=== PATIENT | male | born 1965 | race Caucasian/White ===

== ENCOUNTER 2024-06-12 09:43 | Outpatient (CLI) | payer OTHER ==
[2024-06-12 10:37] LABS: #Basophils 0.06 10x3/uL (0.0-0.2); %Basophils 0.8 % (0.0-1.0); %Lymphocytes 28.9 % (21.0-51.0); %Monocytes 12.9 % (0.0-10.0); %Neutrophils 53.6 % (42.0-75.0); Hematocrit 47.9 % (42.0-52.0); Hemoglobin 16.2 g/dL (14.0-18.0); Mean Corpuscular HGB CONC 33.8 g/dL (32.0-36.0); Mean Corpuscular Hemoglobin 30.3 pg (27.0-31.0); Mean Corpuscular Volume 89.7 fL (78.0-98.0); Mean Platelet Volume 9.8 fL (7.4-10.4); Platelet Count 207 10x3/uL (130-400); RBC Distribution Width 13.4 % (11.5-14.5); Red Blood Cell (RBC) Count 5.34 mill/uL (4.70-6.10)
== END 2024-06-12 09:44 | disposition home or self-care (01) ==
LOC: LABBT 09:43
PROVIDERS: ATTEND Orthopaedic Surgery
DX: Z01.812 Encounter for preprocedural laboratory examination (principal); S83.241A Other tear of medial meniscus, current injury, right knee, initial encounter; M17.11 Unilateral primary osteoarthritis, right knee
CPT/HCPCS: 85025

== ENCOUNTER 2024-06-19 06:46 | Day surgery (SDC) | payer OTHER ==
[2024-06-12 10:12] VITALS: BMI 31.0
[2024-06-19] MEDS ORDERED: PROPOFOL 20 ML ONE ×2 (08:36→10:16)
[2024-06-19] MEDS ORDERED: Bupivacaine PF 0.5% 30 ML VIAL ONE (08:36)
[2024-06-19] MEDS ORDERED: fentaNYL 50 mcg/mL 1 mL Vial ONE (08:36)
[2024-06-19] MEDS ORDERED: Bupivacaine HCl 0.5%/Epinephrine 1:200,000/PF 30 ml Vial ONE (08:45)
[2024-06-19] MEDS ORDERED: Lidocaine 2% PF 5 ML VIAL ONE (08:45)
[2024-06-19] MEDS ORDERED: CEFAZOLIN 2 GM VIAL ONE (09:40)
[2024-06-19] MEDS ORDERED: Sodium Chloride 0.9% 100 ML ONE (09:40)
[2024-06-19] MEDS ORDERED: fentaNYL PF 100 MCG/2 ML SYRINGE ONE (10:16)
[2024-06-19] MEDS ORDERED: Dexamethasone 4 mg/ml Vial ONE (10:38)
[2024-06-19] MEDS ORDERED: Ondansetron PF 4 MG/2 ML Vial ONE (10:50)
[2024-06-19] MEDS ORDERED: Metoprolol Tartrate 5 MG (5 mL) VIAL ONE (10:56)
[2024-06-19] MEDS ORDERED: hydrALAZINE 20 MG/ML VIAL ONE (12:01)
== END 2024-06-19 13:44 | disposition home or self-care (01) ==
LOC: SDC 06:46
PROVIDERS: ATTEND Orthopaedic Surgery
PROC: 0SBC4ZZ Excision of Right Knee Joint, Percutaneous Endoscopic Approach (ICD-10-PCS; principal; 2024-06-19)
DX: S83.241A Other tear of medial meniscus, current injury, right knee, initial encounter (principal); M17.31 Unilateral post-traumatic osteoarthritis, right knee; K21.9 Gastro-esophageal reflux disease without esophagitis; Z90.49 Acquired absence of other specified parts of digestive tract; Z98.890 Other specified postprocedural states; X58.XXXA Exposure to other specified factors, initial encounter; Z88.8 Allergy status to other drugs, medicaments and biological substances
CPT/HCPCS: J0360; J0665; J1100; J2001; J2405; J2704; J3010